=== PATIENT | female | born 1980 | race Two or more races ===

== ENCOUNTER → 2024-11-20 | Outpatient (CLI) | payer MEDICAID, SELFPAY ==
--- NOTE | 2024-11-20 14:15 | XR_ITS ---
Examination: Breast ultrasound, unilateral, left complete Date and time of exam: November 20, 2024 1406 hours INDICATIONS: Left breast sonogram May 25, 2024 10:00 nodule 13 mm Technique: Real-time ott scale ultrasonographic imaging performed left breast including all 4 quadrants as well as nipple retroareolar and axillary region. Findings: 12:00 cyst 4 x 4 millimeter 10:00 lipomatous mass 7 x 6 mm IMPRESSION: BI-RADS Category 2: Benign findings
--- NOTE | 2024-11-20 14:45 | XR_ITS ---
Examination: Diagnostic digital mammography, unilateral, left Computer aided detection 3-D breast Tomosynthesis, unilateral Date and time of exam: November 20, 2024 1413 hours INDICATIONS: Mammogram May 25, 2024 8 mm circumscribed nodule 12:00 position left breast Technique: Nonmagnified MLO, CC views of the left breast have been obtained, reconstructed from 3-D Tomosynthesis images. R2 computer aided detection program utilized for evaluation of suspicious masses and/or abnormal calcifications. 3-D Tomosynthesis images obtained. Findings: Scattered areas of fibroglandular density Stable circumscribed nodule left breast 7 mm Impression: BI-RADS category 2: Benign findings Return to yearly follow-up mammography
== END | disposition home or self-care (01) ==
PROVIDERS: PCP Nurse Practitioner Family; Referring Provider Nurse Practitioner Family; Visit Provider Nurse Practitioner Family
DX: R92.322 Mammographic fibroglandular density, left breast (principal); N63.22 Unspecified lump in the left breast, upper inner quadrant
CPT/HCPCS: 76641; 77061; 77065; G0279

== ENCOUNTER → 2025-07-14 | Outpatient (CLI) | payer MEDICAID, SELFPAY ==
--- NOTE | 2025-07-14 16:06 | XR_ITS ---
Examination: Complete OB ultrasound greater than 14 weeks Date and time of exam: September 13, 2025 at 1617 hours INDICATIONS: [facility] normal second trimester Findings: Viable intrauterine single fetus with single amniotic sac presentation cephalic Cardiac motion 152 BPM Placenta posterior grade 0 Umbilical cord insertion 3 vessel seen Amniotic fluid one pocket 5.1 cm spine maternal right Cervix 5.3 cm. Right ovary 2.7 cm arterial flow. Left ovary 2.8 cm arterial flow 60 mm follicular sclerosis Anterior uterine body area of fibroid degeneration 2.7 x 2.5 cm. Composite estimated gestational age based on BPD, head circumference, abdominal circumference, femur length is 21 weeks 6 days Estimated weight 501.9 g. Survey of intracranial anatomy, spinal anatomy, abdominal anatomy, four-chamber heart performed with no abnormalities identified. Impression: Viable intrauterine gestation cephalic presentation.
== END | disposition home or self-care (01) ==
LOC: CDIM 16:00
PROVIDERS: Referring Provider Obstetrics & Gynecology; Visit Provider Obstetrics & Gynecology
DX: Z34.92 Encounter for supervision of normal pregnancy, unspecified, second trimester (principal); Z3A.21 21 weeks gestation of pregnancy
CPT/HCPCS: 76805

== ENCOUNTER 2025-10-13 11:04 | Outpatient (AMB) | payer MEDICAID, SELFPAY ==
--- NOTE | 2025-10-13 11:17 | OBCLNT_ITS ---
Vital Signs 10/13/25 11:26 Weight 78.982 kg Weight Measurement Method Standing Scale BP 133/89 H Blood Pressure Source Automatic Cuff Blood Pressure Location Left Upper Arm Position Standing Respiration 18 Pulse 80 Pulse Source Monitor Temp 97.2 F Temp Source Oral Pulse Oximetry (%) 97 Oxygen Delivery Method Room Air Allergies/Home Meds Allergies & Medications Allergies No Known Allergies Allergy (Verified 10/13/25 11:27) Medication Reconciliation No Known Home Medications 10/13/25 [History Confirmed 10/13/25] Intake Visit Data Collection New Patient or Established: New Patient (never been to [facility]) Reason for Visit:: OB TRANSFER Seen by Clinical Staff ONLY (RN/MA): No Short Goods Drier Required: Yes Short Goods Drier's name/title: EDUARDO SCHULER MA Do You Feel Safe at Home: Yes Authorities Contacted: N/A PCP or OBGYN visit in last 3 months: Yes Hx Now: Yes Are you currently on any form of Control: No Last menstrual period: 02/18/25 Pain Present Currently: No Pain Scale Used: Cuevas-Arguello/Numerical Pain scale:: 0 Smoking Status Smoking Status: Never smoker Immunizations Flu Vaccine in the Last 12 Months: No Flu Vaccine Exclusion Criteria: No Exclusion Criteria Questionnaires Covid-19 Vaccine Questionnaire Has patient been vacinated for Covid-19 Have you been vacinated for Covid-19: Yes PHQ-9 PHQ-2 Over the last 2 weeks, how often have you been bothered by any of the following problems? 1. Little interest or pleasure in doing things: not at all 2. Feeling down, depressed, or hopeless: not at all Total score: 0 PHQ-9 3. Trouble falling or staying asleep, or sleeping too much: Not at all 4. Feeling tired or having little energy: Not at all 5. Poor appetite or overeating: Not at all 6. Feeling bad about yourself - or that you are a failure or have let yourself or your family down: Not at all 7. Trouble concentrating on things, such as reading the newspaper or watching television: Not at all 8. Moving or speaking so slowly that other people could have noticed? - Or the opposite - being so fidgety or restless that you have been moving around a lot more than usual: not at all 9. Thoughts that you would be better off or of hurting yourself in some way: Not at all Total score: 0 If you checked off any problems, how difficult have these problems made it for you to do your work, take care of things at home, or get along with other people?: not difficult at all Source: Developed by Drs. Cy Leos, Noemi Hodge, Karri Goodwin and colleagues, with an educational audrey from [employer]. Depression screen completed yes Social History Living Situation History Marital Status: Lives With: Family Housing: House Tobacco History Smoking Status: Never smoker Second Hand Smoke Exposure: No Alcohol History Alcohol Intake: Never Domestic Abuse History Do You Feel Safe at Home: Yes OB Initial Visit OB Flowsheet OB Flowsheet Initial Weight: Not Recorded Date -?-?-?-?-?-?-?-?-?-?-?-?- EGA Weight BP Alb Glu CTX Pres Fundal ht FHR Mov Dilation Station Effacement Hx Notes Visit Note 10/13/25 -?-?-?-?-?-?-?-?-?-?-?-?- 33w 6d 78.982 kg 133/89 cephalic 34 148 active Menstrual History Menstrual reliability: definite Flow: normal Menstrual regularity: regular Monthly: Yes Age at menarche: 14 On control pills at conception: No OB History : 3 Para: 1 Hx Total # of Abortions (Spontaneous & Elective): 1 # of Living Children: 1 Delivery History 1st : Child's name: NA date: 03/28/22 sex: male Delivery type: Delivery complications: BABY WOULDNT OPEN Infection History & Risk Evaluation History of STDs: none HIV risk evaluation: low risk Hepatitis B risk evaluation: low risk Patient or partner has history of Genital Herpes: No Varicella/chicken pox status: immunized Genetic Screening & History Genetic Screening/Teratology Counseling - Includes patient, baby's father, or anyone in either family with: 1. Patient's age 35 years or older as of estimated date of delivery: Yes 2. Thalassemia (Serbian, Nauruan, Mediterranean, or Background); MCV less than 80: No 3. Neural Tube Defect (Meningomyelocele, Spina Bifida, or Anencephaly): No 4. Congenital Heart Defect: No 5. Down Syndrome: No 6. Stanton-Sachs ([employer], [facility], [employer] [place]): No 7. Keiry Disease ([employer]): No 8. Familial Dysautonomia ([employer]): No 9. Sickle Cell Disease or Trait (): No 10. Hemophilia or other blood disorders: No 11. Muscular Dystrophy: No 12. Cystic Fibrosis: No 13. Townsend's Chorea: No 14. Mental Retardation/Autism: No 15. Other inherited genetic or chromosomal disorder: No 16. Maternal Metabolic Disorder (EG,TYPE 1 Diabetes, PKU): No 17. Patient or baby's father had a child with defects not listed above: No 18. Recurrent loss or a stillbirth: No 19. Medications (including supplements, vitamins, herbs or otc drugs)/illicit/recreational drugs/alcohol since last menstrual period: No 20. Any other: No Infection History 1. Live with someone with TB or exposed to TB: No 2. Rash or viral illness since last menstrual period: No 3. Hepatitis B,C: No Other (see comments) Source: [employer] Review of Systems Review of Systems Systems Reviewed: All systems reviewed, normal except as documented Exam Narrative Physical exam: Size equal to dates uterus non tender Occasional/ contractions non tender FHR is 148 feta presentation is vertex Office Procedures OBC Clinic LOC & Office Proc's Nursing/Assessment Patient Status: Initial/New Patient OB Clinic Nursing Assessment: Medication Reconciliation, Update PMH in EMR and Vital Signs OB Clinic Coordination of Care: Consent,records obtained, informed consent, Education Simp Pt/Fam, Lab and Imaging orders, Results/Orders obtained and Staff clarify orders Special Needs: Heart tones New Patient Charge New Patient Point Assignment: [id number] New Patient Point Charge: FACEPIECE LINE SUPERVISOR Level 3 ([id number]) Assessment & Plan Diagnosis / Problem List (1) Advanced maternal age (AMA) in : Status: Acute (2) Previous section: Status: Acute (3) : Status: Acute Qualifiers: Weeks of gestation: 33 weeks Qualified Code(s): Z3A.33 - 33 weeks gesta tion of (4) Gestational diabetes mellitus: Status: Acute Qualifiers: Gestational diabetes mellitus control: diet-controlled Trimester: third trimester Qualified Code(s): O24.410 - Gestational diabetes mellitus in , diet controlled Plan 45 years old / GDM on metformin by Dr Franklin and also did not bring her sugar log she has a previous c section/ declined Flu vaccine / A positive /HIV NR/HbsAg is negative RPR NR /rubella immune / One hour GTT is 215 c/w GDM refill Metformin and also vitamins / Needs to start NST biweekly / Also to follow up in 2 weeks / need to schedule repeat C section between 38 to 39 weeks Additional Assessment see above Additional Plan Follow Up: 2 Weeks
[2025-10-13 11:26] VITALS: BP 133/89; PULSE 80; RESP 18; TEMP 36.2; O2SAT 97
== END 2025-10-13 12:11 | disposition home or self-care (01) ==
LOC: HODSOBC 11:04
PROVIDERS: Supervising Provider Obstetrics & Gynecology; Visit Provider Obstetrics & Gynecology
DX: O09.523 Supervision of elderly multigravida, third trimester (principal); O09.893 Supervision of other high risk pregnancies, third trimester; O24.415 Gestational diabetes mellitus in pregnancy, controlled by oral hypoglycemic drugs; O09.293 Supervision of pregnancy with other poor reproductive or obstetric history, third trimester; O34.219 Maternal care for unspecified type scar from previous cesarean delivery; Z3A.33 33 weeks gestation of pregnancy
CPT/HCPCS: 99203; G0463

== ENCOUNTER 2025-10-26 14:14 | Outpatient (AMB) | payer MEDICAID, SELFPAY ==
[2025-10-26 14:59] VITALS: BP 137/84; PULSE 88; RESP 18; TEMP 36.2; O2SAT 98
--- NOTE | 2025-10-26 14:59 | OBCLNT_ITS ---
Vital Signs 10/26/25 14:59 Weight 79.549 kg Weight Measurement Method Standing Scale BP 137/84 H Blood Pressure Source Automatic Cuff Blood Pressure Location Left Upper Arm Position Sitting Respiration 18 Pulse 88 Pulse Source Monitor Temp 97.2 F Temp Source Oral Pulse Oximetry (%) 98 Oxygen Delivery Method Room Air Allergies/Home Meds Allergies & Medications Allergies No Known Allergies Allergy (Verified 10/26/25 16:37) Medication Reconciliation No Known Home Medications 10/13/25 [History Confirmed 10/26/25] Immunizations Immunizations Flu Vaccine in the Last 12 Months: No Flu Vaccine Exclusion Criteria: No Exclusion Criteria Care OB Visit Log OB Flowsheet Initial Weight: Not Recorded Date -?-?-?-?-?-?-?-?-?-?-?-?- EGA Weight BP Alb Glu CTX Pres Fundal ht FHR Mov Dilation Station Effacement Hx Notes Visit Note 10/13/25 -?-?-?-?-?-?-?-?-?-?-?-?- 33w 6d 78.982 kg 133/89 cephalic 34 148 active 10/26/25 -?-?-?-?-?-?-?-?-?-?-?-?- 35w 5d 79.549 kg 137/84 cephalic 36 140 active YOLANDA Calculator Estimated Delivery Date Method Current WG Current Estimate 11/25/25 LMP (Certain) 36w 4d Expected Delivery Route/Plan repeat C section Notes Visit Date: 10/26/25 Last Updated by: Geovanna Scott MD 45 years old / GDM on metformin by Dr Franklin /35.5 weeks today . BP is staying below 140/90 / AMA at 45 years of age / GBS today she has a previous c section/ declined Flu vaccine / A positive /HIV NR/HbsAg is negative RPR NR /rubella immune / One hour GTT is 215 c/w GDM refill Metformin and also vitamins / NST biweekly was ordered but patient states she was not called / Also to follow up in 1 weeks / need to schedule repeat C section between 38 to 39 weeks/ Plan on 11/11/2025 at 12.30 pm /R/B and options all explained Visit Date: 10/13/25 Last Updated by: Geovanna Scott MD 45 years old / GDM on metformin by Dr Franklin and also did not bring her sugar log she has a previous c section/ declined Flu vaccine / A positive /HIV NR/HbsAg is negative RPR NR /rubella immune / One hour GTT is 215 c/w GDM refill Metformin and also vitamins / Needs to start NST biweekly / Also to follow up in 2 weeks / need to schedule repeat C section between 38 to 39 weeks Office Procedures OBC Clinic LOC & Office Proc's Nursing/Assessment Patient Status: Established Patient OB Clinic Nursing Assessment: Medication Reconciliation, Update PMH in EMR and Vital Signs OB Clinic Coordination of Care: Consent,records obtained, informed consent, Education Simp Pt/Fam, Lab and Imaging orders, Results/Orders obtained and Staff clarify orders Special Needs: Heart tones Established Patient Charge Established Patient Point Assignment: 110 Established Patient Point Charge: EP Level 3 (80-115) Assessment & Plan Diagnosis / Problem List (1) Advanced maternal age (AMA) in : Status: Acute (2) Previous section: Status: Acute (3) Gestational diabetes mellitus: Status: Acute Qualifiers: Gestational diabetes mellitus control: diet-controlled Trimester: third trimester Qualified Code(s): O24.410 - Gestational diabetes mellitus in , diet controlled Plan 45 years old / GDM on metformin by Dr Franklin /35.5 weeks today . BP is staying below 140/90 / AMA at 45 years of age / GBS today she has a previous c section/ declined Flu vaccine / A positive /HIV NR/HbsAg is negative RPR NR /rubella immune / One hour GTT is 215 c/w GDM refill Metformin and also vitamins / NST biweekly was ordered but patient states she was not called / Also to follow up in 1 weeks / need to schedule repeat C section between 38 to 39 weeks/ Plan on 11/11/2025 at 12.30 pm /R/B and options all explained and patient has AMA and has GDM on medication
== END 2025-10-26 15:35 | disposition home or self-care (01) ==
LOC: HODSOBC 14:14
PROVIDERS: Supervising Provider Obstetrics & Gynecology; Visit Provider Obstetrics & Gynecology
DX: O09.523 Supervision of elderly multigravida, third trimester (principal); O09.293 Supervision of pregnancy with other poor reproductive or obstetric history, third trimester; O34.219 Maternal care for unspecified type scar from previous cesarean delivery; O09.893 Supervision of other high risk pregnancies, third trimester; O24.415 Gestational diabetes mellitus in pregnancy, controlled by oral hypoglycemic drugs; Z3A.35 35 weeks gestation of pregnancy; Z36.85 Encounter for antenatal screening for Streptococcus B; Z28.21 Immunization not carried out because of patient refusal
CPT/HCPCS: 99213; G0463

== ENCOUNTER 2025-10-26 16:08 | Observation (INO) | payer MEDICAID, SELFPAY ==
[2025-10-26] VITALS (34 sets, daily range): BP systolic 123–137; BP diastolic 67–80; PULSE 75–90; RESP 18–100; TEMP 36.6; O2SAT 98–100; BMI 34.2
[2025-10-26 16:37] LABS: Collection Type, Urine Clean Catch
[2025-10-26 16:41] LABS: Basophils # (Auto) 0.0 Thou/mm3 (0.0-0.2); Basophils % (Auto) 0 % (0-2.5); Eosinophils # (Auto) 0.1 Thou/mm3 (0.0-0.5); Eosinophils % (Auto) 0 % (0-10); Hematocrit 42.0 % (36.0-46.0); Hemoglobin 14.4 g/dL (12.0-16.0); Immature Granulocytes Auto 0.06 Thou/mm3 (0.00-0.00); Lymphocytes # (Auto) 1.8 Thou/mm3 (1.0-4.8); Lymphocytes % (Auto) 16 % (10-50); Mean Corpuscular HGB Conc 34.3 g/dl (31.0-37.0); Mean Corpuscular Hemoglobin 30.6 pg (25.0-35.0); Mean Corpuscular Volume 89 fL (80-100); Monocytes # (Auto) 0.6 Thou/mm3 (0.0-0.8); Monocytes % (Auto) 5 % (0-12); Neutrophils # (Auto) 9.0 Thou/mm3 (1.8-7.7); Neutrophils % (Auto) 78 % (37-80); Nucleated Red Blood Cell # 0.00 Thou/mm3 (0.00-0.00); Nucleated Red Blood Cell % 0 /100 WBC (0); Platelet Count 199 Thou/mm3 (140-440); RDW Standard Deviation 42.2 fL (36.4-46.3); Red Blood Count 4.71 Miln/mm3 (4.00-5.20); White Blood Count 11.6 Thou/mm3 (3.6-11.0)
[2025-10-26 16:44] LABS: Bacteria,Urine 1+; Bilirubin,Urine Negative (Negative); Blood,Urine 1+ (Negative); Color,Urine Lt-Yellow (Lt Yel-Yel); Glucose, Urine Negative (Negative); Ketones,Urine Negative (Negative); Leukocyte Esterase,Urine Positive (Negative); Nitrite,Urine Negative (Negative); PH,Urine 5.5 (5.0-7.0); Protein,Urine Trace (Neg - Trace); RBC,Urine 3 /hpf (0-3); Specific Gravity,Urine 1.011 (1.001-1.035); Squamous Epithelial Cell,Urine 21 /hpf (0-5); Urobilinogen,Urine Negative mg/dL (0.0-1.0); WBC,Urine 3 /hpf (0-5)
[2025-10-26 16:49] LABS: Creatinine,Random Urine 58 mg/dL (30-125); Protein Total, Random Urine 22 mg/dL (1-14)
[2025-10-26 17:02] LABS: Alanine Aminotransferase 12 U/L (10-49); Albumin, Serum 4.0 gm/dL (3.5-5.0); Albumin/Globulin Ratio 1.4 (1.2-2.2); Alkaline Phosphatase 122 U/L (46-116); Anion Gap 10 (7-16); Aspartate Amino Transferase 21 U/L (0-34); BUN/Creatinine Ratio 11 Ratio (12-20); Bilirubin,Total 0.2 mg/dL (0.3-1.2); Blood Urea Nitrogen 8 mg/dL (9-23); Calcium 8.7 mg/dL (8.3-10.6); Calcium (Corrected) 8.7 mg/dL (8.5-10.1); Carbon Dioxide 21.8 mMol/L (20.0-31.0); Chloride 108 mMol/L (98-107); Creatinine (Component) 0.7 mg/dL (0.6-1.3); Estimated Creatinine Clearance 96.6 mL/min (>60); Globulin 2.8 gm/dL (2.3-3.5); Glucose 105 mg/dL (74-106); LDH (Lactate Dehydrogenase) 167 U/L (120-246); Osmolality,Calculated 277 (275-295); Potassium 3.7 mMol/L (3.4-5.1); Sodium 140 mMol/L (136-145); Total Protein 6.8 gm/dL (5.7-8.2); Uric Acid 3.8 mg/dL (3.1-7.8); eGFR > 60 See Note
[2025-10-26 17:07] LABS: Clarity,Urine Hazy (Clear/Hazy)
[2025-10-26 18:25] LABS: INR 0.9 (0.9-1.3); Partial Thromboplastin Time 25.9 Seconds (22.0-36.0); Prothrombin Time 9.7 Seconds (9.0-12.2)
[2025-10-26 18:28] LABS: Creatinine,Random Urine 39 mg/dL (30-125); Protein Total, Random Urine 8 mg/dL (1-14)
--- NOTE | 2025-10-26 23:30 | PD.LDPN ---
Documentation for date of: 10/26/25 OB Labor Progress Note Pelvic Exam Amniotic membrane status: Intact Contractions Monitor mode: External Contraction frequency: 3-10 Contraction intensity: Mild Status status: Category l Assessment and Plan Comments: Triage Note Lore is a 45yo with SIUP at 35&5wk presenting to L&D from clinic for PIH workup for bp 130's/80's. She notes no painful/regular ctx, no vaginal bleeding, no lof. Normal movement. She denies headache, vision changes and RUQ pain. PMhx/PNC significant for: -A2GDM, metformin -Prior section -Current BMI 34.2 ROS negative other than what was described above. Vitals wnl, afebrile General: well developed, well nourished, no acute distress, conversant Cardiac: normal heart rate Lungs: breathing without distress Abdomen: soft, gravid, non-tender, no rebound or guarding Extremities: no edema of BLE NST: Reactive, +accels, no decels, mod kartik [place]: no regular ctx pattern Labs: Hgb 14.4 Plt 199 serum creat 0.7 AST/ALT wnl urine prot:creat 0.2 Assessment: Lore is a 45yo with SIUP at 35&5wk with no evidence of GHTN or pre-eclampsia at this time. Vitals wnl, benign exam. Reassuring status. Plan: -Continue routine follow up with Dr. Scott in 1 week -Return precautions discussed Zakyia Jones MD
== END 2025-10-26 19:06 | disposition home or self-care (01) ==
PROVIDERS: Obstetrics & Gynecology; Admitting Provider Obstetrics & Gynecology; Visit Provider Obstetrics & Gynecology
DX: Z34.83 Encounter for supervision of other normal pregnancy, third trimester (principal); Z36.89 Encounter for other specified antenatal screening; Z3A.37 37 weeks gestation of pregnancy
CPT/HCPCS: 36415; 59025; 59899; 80053; 81001; 82570; 83615; 84156; 84550; 85025; 85610; 85730

== ENCOUNTER 2025-11-02 08:47 | Outpatient (AMB) | payer MEDICAID, SELFPAY ==
[2025-11-02 08:57] VITALS: BP 133/81; PULSE 80; RESP 18; TEMP 36.8; O2SAT 98
--- NOTE | 2025-11-02 08:57 | AMB.OBPNC ---
Vital Signs 11/02/25 08:57 Weight 79.379 kg Weight Measurement Method Standing Scale BP 133/81 H Blood Pressure Source Automatic Cuff Blood Pressure Location Left Upper Arm Position Sitting Respiration 18 Pulse 80 Pulse Source Monitor Temp 98.2 F Temp Source Oral Pulse Oximetry (%) 98 Oxygen Delivery Method Room Air Allergies/Home Meds Allergies & Medications Allergies No Known Allergies Allergy (Verified 11/10/25 11:57) Medication Reconciliation metformin 500 mg tablet 500 mg PO BID #60 tabs 11/02/25 [Rx Confirmed 11/10/25] aspirin 81 mg tablet,delayed release mg 11/10/25 [History] vit no.95-ferrous fumarate 28 mg-folic acid 800 mcg tablet () tab PO 11/10/25 [History] Immunizations Immunizations Flu Vaccine in the Last 12 Months: No Flu Vaccine Exclusion Criteria: Refused by Patient and No Exclusion Criteria Care OB Visit Log OB Flowsheet Initial Weight: Not Recorded Date <del>?</del> EGA Weight BP Alb Glu CTX Pres Fundal ht FHR Mov Dilation Station Effacement Hx Notes Visit Note 10/13/25 <del>?</del> 33w 6d 78.982 kg 133/89 cephalic 34 148 active 10/26/25 <del>?</del> 35w 5d 79.549 kg 137/84 cephalic 36 140 active 11/02/25 <del>?</del> 36w 5d 79.379 kg 133/81 absent cephalic 37 144 active 11/10/25 <del>?</del> 37w 6d 80.853 kg 143/83 absent cephalic 38 144 active YOLANDA Calculator Estimated Delivery Date Method Current WG Current Estimate 11/25/25 LMP (Certain) 38w 0d Expected Delivery Route/Plan repeat C section Notes Visit Date: 11/10/25 Last Updated by: Geovanna Scott MD PLAN REPEAT LTCS IN AM AT 0730 am on 11/11/2025 for GDM on medication / repeat BP today is 153/93 Preop instructions given / follow up after surgery in 1 to 2 weeks 45 years old with GDM on metformin at 37.6 weeks today Visit Date: 11/02/25 Last Updated by: Geovanna Scott MD scheduled for repeat LTCS on 11/11/2025 at 12.30 for AMA and GDM on Metformin Borderline BP in office / sugar log reviewed and well controlled on Metformin/ Needs refills on metformin NST Sat/ / Counselled on R/b and options of repeat LTCS in [place] via compensation and benefits administrator. Visit Date: 10/26/25 Last Updated by: Geovanna Scott MD 45 years old / GDM on metformin by Dr Franklin /35.5 weeks today . BP is staying below 140/90 / AMA at 45 years of age / GBS today she has a previous c section/ declined Flu vaccine / A positive /HIV NR/HbsAg is negative RPR NR /rubella immune / One hour GTT is 215 c/w GDM refill Metformin and also vitamins / NST biweekly was ordered but patient states she was not called / Also to follow up in 1 weeks / need to schedule repeat C section between 38 to 39 weeks/ Plan on 11/11/2025 at 12.30 pm /R/B and options all explained Visit Date: 10/13/25 Last Updated by: Geovanna Scott MD 45 years old / GDM on metformin by Dr Franklin and also did not bring her sugar log she has a previous c section/ declined Flu vaccine / A positive /HIV NR/HbsAg is negative RPR NR /rubella immune / One hour GTT is 215 c/w GDM refill Metformin and also vitamins / Needs to start NST biweekly / Also to follow up in 2 weeks / need to schedule repeat C section between 38 to 39 weeks Office Procedures OBC Clinic LOC & Office Proc's Nursing/Assessment Patient Status: Established Patient OB Clinic Nursing Assessment: Medication Reconciliation, Update PMH in EMR and Vital Signs OB Clinic Coordination of Care: Consent,records obtained, informed consent, Education Simp Pt/Fam, Lab and Imaging orders, Results/Orders obtained and Staff clarify orders Special Needs: Heart tones Established Patient Charge Established Patient Point Assignment: 110 Established Patient Point Charge: EP Level 3 (80-115) Assessment & Plan Additional Plan Patient was given the reason for proceeding with surgery. She was given the risk benefits and options. She chose to proceed with the surgery. Risks of surgery to include risk of infection bleeding, possible injury to the surrounding organs like the urinary bladder, intestines, ureter, uterus, tubes, ovaries, nerves, blood vessels, possible risk of wound dehiscence later on or hernia development later on in future. However the surgery is done when the benefits outweigh the risks Possible risks of blood transfusion and options were also discussed. All questions answered Patient willing to proceed with surgery.Scheduled for repeat LTCS on 11/11/2025 at 38 weeks for AMa and GDM on Metformin Follow Up: 1 Week
== END 2025-11-02 09:26 | disposition home or self-care (01) ==
PROVIDERS: Supervising Provider Obstetrics & Gynecology; Visit Provider Obstetrics & Gynecology
DX: O09.293 Supervision of pregnancy with other poor reproductive or obstetric history, third trimester (principal); O34.211 Maternal care for low transverse scar from previous cesarean delivery; O09.523 Supervision of elderly multigravida, third trimester; O09.893 Supervision of other high risk pregnancies, third trimester; O24.415 Gestational diabetes mellitus in pregnancy, controlled by oral hypoglycemic drugs; Z3A.36 36 weeks gestation of pregnancy; Z28.21 Immunization not carried out because of patient refusal; Z60.3 Acculturation difficulty
CPT/HCPCS: 99213; G0463

== ENCOUNTER 2025-11-08 10:03 | Outpatient (RCR) | payer MEDICAID, SELFPAY ==
--- NOTE | 2025-11-01 10:37 | XR_ITS ---
Examination: Biophysical profile, ultrasound Date and time of exam: October,, 10:43 a.m. INDICATIONS: Diagnosis gestational diabetes, diagnosis advanced maternal age Technique: Multiple transabdominal sonographic images of the pelvis abdomen obtained. Attention is directed to the breathing movement, gross body movement, amniotic fluid volume and tone. Findings: Amniotic fluid index 15.1 cm Total biophysical profile is 8 of 8. breathing movement is 2. Gross body movement is 2. tone is 2. Qualitative amniotic fluid volume is 2 Impression: Biophysical profile is 8 of 8.
[2025-11-01 11:08] VITALS: BP 124/74; PULSE 81; RESP 16; TEMP 37
--- NOTE | 2025-11-04 10:11 | XR_ITS ---
Examination: Biophysical profile, ultrasound Date and time of exam: November 04, 2025, 1019 hours INDICATIONS: Diagnosis advanced maternal age, diagnosis gestational diabetes Technique: Multiple transabdominal sonographic images of the pelvis abdomen obtained. Attention is directed to the breathing movement, gross body movement, amniotic fluid volume and tone. Findings: Amniotic fluid index 16.7 cm Total biophysical profile is 8 of 8. breathing movement is 2. Gross body movement is 2. tone is 2. Qualitative amniotic fluid volume is 2 Impression: Biophysical profile is 8 of 8.
[2025-11-04 10:38] VITALS: BP 114/68; PULSE 82; RESP 16; TEMP 36.5
[2025-11-04] MEDS: RINGERS LACTATED 1000 ML 1,000 ML 999 ML IV (11:48)
[2025-11-04 13:16] LABS: Basophils # (Auto) 0.0 Thou/mm3 (0.0-0.2); Basophils % (Auto) 0 % (0-2.5); Eosinophils # (Auto) 0.0 Thou/mm3 (0.0-0.5); Eosinophils % (Auto) 0 % (0-10); Hematocrit 44.2 % (36.0-46.0); Hemoglobin 14.9 g/dL (12.0-16.0); Immature Granulocytes Auto 0.07 Thou/mm3 (0.00-0.00); Lymphocytes # (Auto) 1.4 Thou/mm3 (1.0-4.8); Lymphocytes % (Auto) 15 % (10-50); Mean Corpuscular HGB Conc 33.7 g/dl (31.0-37.0); Mean Corpuscular Hemoglobin 30.0 pg (25.0-35.0); Mean Corpuscular Volume 89 fL (80-100); Monocytes # (Auto) 0.6 Thou/mm3 (0.0-0.8); Monocytes % (Auto) 6 % (0-12); Neutrophils # (Auto) 7.1 Thou/mm3 (1.8-7.7); Neutrophils % (Auto) 77 % (37-80); Nucleated Red Blood Cell # 0.00 Thou/mm3 (0.00-0.00); Nucleated Red Blood Cell % 0 /100 WBC (0); Platelet Count 186 Thou/mm3 (140-440); RDW Standard Deviation 42.4 fL (36.4-46.3); Red Blood Count 4.96 Miln/mm3 (4.00-5.20); White Blood Count 9.1 Thou/mm3 (3.6-11.0)
[2025-11-04 13:31] LABS: Glucose Estimated Average 134 mg/dL (80-131); Hemoglobin A1C 6.3 % Hgb (4.8-6.0)
[2025-11-04 14:50] LABS: Syphilis Nonreactive (Nonreactive)
--- NOTE | 2025-11-08 10:20 | XR_ITS ---
Examination: Biophysical profile, ultrasound Date and time of exam: November 08, 2025, 1029 hours INDICATIONS: Diagnosis advanced maternal age, diagnosis gestational diabetes Technique: Multiple transabdominal sonographic images of the pelvis abdomen obtained. Attention is directed to the breathing movement, gross body movement, amniotic fluid volume and tone. Findings: Amniotic fluid index 12.0 cm Total biophysical profile is 8 of 8. breathing movement is 2. Gross body movement is 2. tone is 2. Qualitative amniotic fluid volume is 2 Impression: Biophysical profile is 8 of 8.
[2025-11-08 10:46] VITALS: BP 128/61; PULSE 73; RESP 16; TEMP 36.8
== END 2025-11-08 23:59 | disposition home or self-care (01) ==
LOC: S4S1 10:03
PROVIDERS: Obstetrics & Gynecology; PCP Family Medicine; Referring Provider Obstetrics & Gynecology; Visit Provider Obstetrics & Gynecology
DX: O24.415 Gestational diabetes mellitus in pregnancy, controlled by oral hypoglycemic drugs (principal); O34.218 Maternal care for other type scar from previous cesarean delivery; Z3A.37 37 weeks gestation of pregnancy
CPT/HCPCS: 36415; 59025; 76819; 83036; 85025; 86780; 86850; 86900; 86901; J7120

== ENCOUNTER 2025-11-10 09:16 | Outpatient (AMB) | payer MEDICAID, SELFPAY ==
[2025-11-10 09:35] VITALS: BP 143/83; PULSE 82; RESP 18; TEMP 36.1; O2SAT 98; BMI 34.9
--- NOTE | 2025-11-10 09:35 | OBCLNT_ITS ---
Vital Signs 11/10/25 09:35 Height 1.52 m Height Method Stated Weight 80.853 kg Weight Measurement Method Standing Scale BMI 34.9 BP 143/83 H Blood Pressure Source Automatic Cuff Blood Pressure Location Left Upper Arm Position Sitting Respiration 18 Pulse 82 Pulse Source Monitor Temp 96.9 F Temp Source Temporal Artery Scan Pulse Oximetry (%) 98 Oxygen Delivery Method Room Air Allergies/Home Meds Allergies & Medications Allergies No Known Allergies Allergy (Verified 11/10/25 11:57) Medication Reconciliation metformin 500 mg tablet 500 mg PO BID #60 tabs 11/02/25 [Rx Confirmed 11/10/25] aspirin 81 mg tablet,delayed release mg 11/10/25 [History] vit no.95-ferrous fumarate 28 mg-folic acid 800 mcg tablet () tab PO 11/10/25 [History] Immunizations Immunizations Flu Vaccine in the Last 12 Months: No Flu Vaccine Exclusion Criteria: No Exclusion Criteria Care OB Visit Log OB Flowsheet Initial Weight: Not Recorded Date -?-?-?-?-?-?-?-?-?-?-?-?- EGA Weight BP Alb Glu CTX Pres Fundal ht FHR Mov Dilation Station Effacement Hx Notes Visit Note 10/13/25 -?-?-?-?-?-?-?-?-?-?-?-?- 33w 6d 78.982 kg 133/89 cephalic 34 148 active 10/26/25 -?-?-?-?-?-?-?-?-?-?-?-?- 35w 5d 79.549 kg 137/84 cephalic 36 140 active 11/02/25 -?-?-?-?-?-?-?-?-?-?-?-?- 36w 5d 79.379 kg 133/81 absent cephalic 37 144 active 11/10/25 -?-?-?-?-?-?-?-?-?--?-?-?- 37w 6d 80.853 kg 143/83 absent cephalic 38 144 active YOLANDA Calculator Estimated Delivery Date Method Current WG Current Estimate 11/25/25 LMP (Certain) 37w 6d Expected Delivery Route/Plan repeat C section Notes Visit Date: 11/10/25 Last Updated by: Geovanna Scott MD PLAN REPEAT LTCS IN AM AT 0730 am on 11/11/2025 for GDM on medication / repeat BP today is 153/93 Preop instructions given / follow up after surgery in 1 to 2 weeks 45 years old with GDM on metformin at 37.6 weeks today Visit Date: 11/02/25 Last Updated by: Geovanna Scott MD scheduled for repeat LTCS on 11/11/2025 at 12.30 for AMA and GDM on Metformin Borderline BP in office / sugar log reviewed and well controlled on Metformin/ Needs refills on metformin NST Sat/ / Counselled on R/b and options of repeat LTCS in [place] via defensive fire control systems operator. Visit Date: 10/26/25 Last Updated by: Geovanna Scott MD 45 years old / GDM on metformin by Dr Franklin /35.5 weeks today . BP is staying below 140/90 / AMA at 45 years of age / GBS today she has a previous c section/ declined Flu vaccine / A positive /HIV NR/HbsAg is negative RPR NR /rubella immune / One hour GTT is 215 c/w GDM refill Metformin and also vitamins / NST biweekly was ordered but patient states she was not called / Also to follow up in 1 weeks / need to schedule repeat C section between 38 to 39 weeks/ Plan on 11/11/2025 at 12.30 pm /R/B and options all explained Visit Date: 10/13/25 Last Updated by: Geovanna Scott MD 45 years old / GDM on metformin by Dr Franklin and also did not bring her sugar log she has a previous c section/ declined Flu vaccine / A positive /HIV NR/HbsAg is negative RPR NR /rubella immune / One hour GTT is 215 c/w GDM refill Metformin and also vitamins / Needs to start NST biweekly / Also to follow up in 2 weeks / need to schedule repeat C section between 38 to 39 weeks Office Procedures [facility] LOC & Office Proc's Nursing/Assessment Patient Status: Established Patient OB Clinic Nursing Assessment: Medication Reconciliation, Update PMH in EMR and Vital Signs OB Clinic Coordination of Care: Complex Care and Chronic Disease 1-5, Education Complex Pt/Fam, Consent,records obtained, informed consent, Lab and Imaging orders, Results/Orders obtained and Staff clarify orders Special Needs: Heart tones Established Patient Charge Established Patient Point Assignment: 140 Established Patient Point Charge: EP Level 4 (120-155) Assessment & Plan Diagnosis / Problem List (1) Gestational diabetes mellitus: Status: Acute Qualifiers: Gestational diabetes mellitus control: diet-controlled Trimester: third trimester Qualified Code(s): O24.410 - Gestational diabetes mellitus in , diet controlled (2) Previous section: Status: Acute (3) Advanced maternal age (AMA) in : Status: Acute Assessment and Plan: 45 years old at 37.6 weeks with previous c section and with elevated BP in office today / send to Ob L&D , if discharged. plan repeat LTCS in am tomorrow / Patient given R/B and options aof surgery (4) : Status: Acute Qualifiers: Weeks of gestation: 33 weeks Qualified Code(s): Z3A.33 - 33 weeks gestation of
== END 2025-11-10 10:44 | disposition home or self-care (01) ==
LOC: HODSOBC 09:16
PROVIDERS: Supervising Provider Obstetrics & Gynecology; Visit Provider Obstetrics & Gynecology
DX: O09.893 Supervision of other high risk pregnancies, third trimester (principal); O24.415 Gestational diabetes mellitus in pregnancy, controlled by oral hypoglycemic drugs; O09.523 Supervision of elderly multigravida, third trimester; O09.293 Supervision of pregnancy with other poor reproductive or obstetric history, third trimester; O34.211 Maternal care for low transverse scar from previous cesarean delivery; O99.891 Other specified diseases and conditions complicating pregnancy; R03.0 Elevated blood-pressure reading, without diagnosis of hypertension; Z3A.37 37 weeks gestation of pregnancy
CPT/HCPCS: 99214; G0463

== ENCOUNTER 2025-11-10 11:08 | Observation (INO) | payer MEDICAID, SELFPAY ==
[2025-11-10] VITALS (28 sets, daily range): BP systolic 127–139; BP diastolic 73–86; PULSE 76–89; RESP 17–100; TEMP 37.1; O2SAT 97–100; BMI 34.0
[2025-11-10 11:58] LABS: Collection Type, Urine Clean Catch
[2025-11-10 12:02] LABS: Basophils # (Auto) 0.0 Thou/mm3 (0.0-0.2); Basophils % (Auto) 0 % (0-2.5); Eosinophils # (Auto) 0.0 Thou/mm3 (0.0-0.5); Eosinophils % (Auto) 0 % (0-10); Hematocrit 42.3 % (36.0-46.0); Hemoglobin 14.5 g/dL (12.0-16.0); Immature Granulocytes Auto 0.07 Thou/mm3 (0.00-0.00); Lymphocytes # (Auto) 1.7 Thou/mm3 (1.0-4.8); Lymphocytes % (Auto) 17 % (10-50); Mean Corpuscular HGB Conc 34.3 g/dl (31.0-37.0); Mean Corpuscular Hemoglobin 30.0 pg (25.0-35.0); Mean Corpuscular Volume 87 fL (80-100); Monocytes # (Auto) 0.6 Thou/mm3 (0.0-0.8); Monocytes % (Auto) 6 % (0-12); Neutrophils # (Auto) 7.6 Thou/mm3 (1.8-7.7); Neutrophils % (Auto) 76 % (37-80); Nucleated Red Blood Cell # 0.00 Thou/mm3 (0.00-0.00); Nucleated Red Blood Cell % 0 /100 WBC (0); Platelet Count 183 Thou/mm3 (140-440); RDW Standard Deviation 41.3 fL (36.4-46.3); Red Blood Count 4.84 Miln/mm3 (4.00-5.20); White Blood Count 10.0 Thou/mm3 (3.6-11.0)
[2025-11-10 12:26] LABS: Alanine Aminotransferase 15 U/L (10-49); Albumin, Serum 3.9 gm/dL (3.5-5.0); Albumin/Globulin Ratio 1.3 (1.2-2.2); Alkaline Phosphatase 142 U/L (46-116); Anion Gap 12 (7-16); Aspartate Amino Transferase 24 U/L (0-34); BUN/Creatinine Ratio 15 Ratio (12-20); Bilirubin,Total 0.3 mg/dL (0.3-1.2); Blood Urea Nitrogen 9 mg/dL (9-23); Calcium 8.9 mg/dL (8.3-10.6); Calcium (Corrected) 9.0 mg/dL (8.5-10.1); Carbon Dioxide 19.3 mMol/L (20.0-31.0); Chloride 109 mMol/L (98-107); Creatinine (Component) 0.6 mg/dL (0.6-1.3); Estimated Creatinine Clearance 113.7 mL/min (>60); Globulin 2.9 gm/dL (2.3-3.5); Glucose 85 mg/dL (74-106); LDH (Lactate Dehydrogenase) 184 U/L (120-246); Osmolality,Calculated 277 (275-295); Potassium 3.8 mMol/L (3.4-5.1); Sodium 140 mMol/L (136-145); Total Protein 6.8 gm/dL (5.7-8.2); Uric Acid 4.8 mg/dL (3.1-7.8); eGFR > 60 See Note
[2025-11-10 12:35] LABS: Bacteria,Urine 4+; Bilirubin,Urine Negative (Negative); Blood,Urine 1+ (Negative); Color,Urine Yellow (Lt Yel-Yel); Glucose, Urine Negative (Negative); Ketones,Urine Negative (Negative); Leukocyte Esterase,Urine Positive (Negative); Nitrite,Urine Negative (Negative); PH,Urine 6.0 (5.0-7.0); Protein,Urine 1+ (Neg - Trace); RBC,Urine 4 /hpf (0-3); Specific Gravity,Urine 1.015 (1.001-1.035); Squamous Epithelial Cell,Urine 121 /hpf (0-5); Urobilinogen,Urine Negative mg/dL (0.0-1.0); WBC,Urine 22 /hpf (0-5)
[2025-11-10 12:44] LABS: Syphilis Nonreactive (Nonreactive)
[2025-11-10 12:53] LABS: Clarity,Urine Cloudy (Clear/Hazy)
[2025-11-10 13:05] LABS: Creatinine,Random Urine 73 mg/dL (30-125); Protein Total, Random Urine 91 mg/dL (1-14)
[2025-11-10 13:29] LABS: INR 0.9 (0.9-1.3); Partial Thromboplastin Time 26.1 Seconds (22.0-36.0); Prothrombin Time 9.5 Seconds (9.0-12.2)
[2025-11-10 13:30] LABS: Fibrinogen 560 mg/dL (175-375)
== END 2025-11-10 13:25 | disposition home or self-care (01) ==
PROVIDERS: Admitting Provider Obstetrics & Gynecology; Visit Provider Obstetrics & Gynecology
DX: O16.3 Unspecified maternal hypertension, third trimester (principal); Z3A.37 37 weeks gestation of pregnancy
CPT/HCPCS: 36415; 59025; 59899; 80053; 81001; 82570; 83615; 84156; 84550; 85025; 85384; 85610; 85730; 86780; 86850; 86900; 86901

== ENCOUNTER 2025-11-11 05:41 | Inpatient (IN) | payer MEDICAID, SELFPAY ==
[2025-11-11] VITALS (15 sets, daily range): BP systolic 131–164; BP diastolic 75–86; PULSE 68–82; RESP 12–18; TEMP 36.4–37; O2SAT 97–100; BMI 33.6; BMI 32.8
[2025-11-11] MEDS: METOCLOPRAMIDE INJ 5 MG/ML VIAL 2 ML 10 MG IVP (07:22)
[2025-11-11] MEDS: ceFAZolin/D5W 2 GM IV 2 GM/100 ML BAG IV (07:22)
[2025-11-11] MEDS: FAMOTIDINE INJ 10 MG/ML VIAL 2 ML 20 MG IV (07:22)
--- NOTE | 2025-11-11 07:28 | PD.LDHP ---
Documentation for date of: 11/11/25 OB Labor/Induct. HPI History of Present Illness Chief complaint: previous c section, AMA, GDM on metformin : 3 Term pregnancies: 1 pregnancies: 0 Living children: 1 History of Abortions: Spontaneous and Elective: 1 History of sections: Yes (X1) History of : No Date of last menstrual period: 02/18/25 YOLANDA: 11/25/25 Gestational Age (weeks): 38 Gestational age based on last menstrual period: 38 History of present illness: 45 years old at 38 weeks and AMA, GDM on Metformin and here for repeat LTCS R/B and options explained History of Present Dating criteria: LMP confirmed by 2nd trimester US Adequate Care: No Ultrasounds: normal mid trimester US Obstetrical complications: gestational diabetes (on metformin) and other (AMA/ previous C section) Labs Maternal Blood Type: A Pos Review of Systems Review of Systems Systems Reviewed: All systems reviewed, normal except as documented Past Medical History Surgical History SURGICAL: Positive Section (X1) Meds Home Medications and Allergies Home Medications ?Medication ?Instructions ?Recorded ?Confirmed ?Type aspirin 81 mg tablet,delayed 81 mg PO QDAY 11/10/25 11/11/25 History release vit no.95-ferrous 1 tab PO QDAY 11/10/25 11/11/25 History fumarate 28 mg-folic acid 800 mcg tablet () Allergies Allergy/AdvReac Type Severity Reaction Status Date / Time No Known Allergies Allergy Verified 11/11/25 05:51 OB Exam Physical Exam Vital signs: Temp Pulse Resp BP Pulse Ox 98.3 F 79 18 149/82 H 99 11/11/25 06:00 11/11/25 06:32 11/11/25 06:00 11/11/25 06:32 11/11/25 06:00 Narrative: Size equal to dates uterus non tender Occasional/ contractions non tender FHR is category 1 feta presentation is vertex Alert and oriented x 3 no shortness of breath Pain no chest pain no palpitations CVS regular rate and rhythm No CVAT Abdomen nontender, normal bowel sounds No guarding no rigidity No hernias OB Assessment & Plan Assessment and Plan (1) Gestational diabetes mellitus: Status: Acute (2) : Status: Acute (3) Previous section: Status: Acute (4) Advanced maternal age (AMA) in : Status: Acute (5) Elevated BP reading w/ no diagnosis of HTN: Status: Acute Additional Plan Additional Plan Comment: repeat LTCS today / refused Tubal / R/B and options explained. All questions answered Patient was given the reason for proceeding with surgery. She was given the risk benefits and options. She chose to proceed with the surgery. Risks of surgery to include risk of infection bleeding, possible injury to the surrounding organs like the urinary bladder, intestines, ureter, uterus, tubes, ovaries, nerves, blood vessels, possible risk of wound dehiscence later on or hernia development later on in future. However the surgery is done when the benefits outweigh the risks Possible risks of blood transfusion and options were also discussed. All questions answered Patient willing to proceed with surgery. (1) Gestational diabetes mellitus Qualifiers: Gestational diabetes mellitus control: diet-controlled Trimester: third trimester Qualified Code(s): O24.410 - Gestational diabetes mellitus in , diet controlled (2) Qualifiers: Weeks of gestation: 33 weeks Qualified Code(s): Z3A.33 - 33 weeks gestation of
--- NOTE | 2025-11-11 08:41 | ESOP_ITS ---
Operative Note - [employer] Procedure Date of procedure: 11/11/25 Procedure Performed: repeat LTCS at 38 weeks , AMA, GDM on metformin. elevated BP Indication: with previous c section at 38 weeks , AMA, GDM on metformin. elevated BP Pre-Op diagnosis: with previous c section at 38 weeks , AMA, GDM on metformin. elevated BP Post-Op diagnosis: with previous c section at 38 weeks , AMA, GDM on metformin. elevated BP Anesthesia type: Spinal Procedure description: After an informed consent patient was taken to the operating room, she was prepped and draped in the usual sterile fashion after receiving spinal anesthesia. A timeout was done. Surgical site infection prophylaxis was given Vickers was in place and draining clear urine SCDs were in place After verification of adequacy of anesthesia, a Pfannansteil incision was made 2 cm above the symphysis pubis and carried laterally on the skin and it was carried down to subcutaneous tissue and then to the rectus fascia, the rectus fascia was from underlying muscles by sharp and blunt dissection Peritoneal cavity was entered atraumatically A Villa retractor placed superiorly, and a bladder blade inferiorly Lower uterine segment was well-formed Incision made in the lower uterine segment, and amniotic sac ruptured, clear/ meconium stained amniotic fluid Baby was delivered as cephalic Cord clamped and cut and baby received by the waiting nursery team Cord blood collected, placenta removed spontaneously, uterus exteriorized and closed in a wet lap Uterine cavity clean dry of any remaining membranes with a dry lap, uterine incision closed with the help of 0 Monocryl in 2 layers in a running , interlocking fashion . Hemostasis is good Uterus is firm Both tubes and ovaries look normal Uterus is placed back in the peritoneal cavity in the pelvis Instrument needle and sponge count is correct, hemostasis was checked for again on the uterine incision and it is confirmed Peritoneal closure done with 2-0 Vicryl Rectus abdominis muscles approximated with 2-0 Vicryl Rectus fascia approximated with 0 Vicryl running sutures Subcutaneous tissue irrigated closed with and approximated with 3-0 plain catgut Skin approximated with 4-0 Monocryl. Tape dressing applied with Dermabond ABD dressing placed on top Vickers is draining clear urine EBL is 600 cc Patient delivered a liveborn male Apgars are 9 and 9 weight 3830 grams Specimen: none Estimated blood loss (ml): 600 Findings: see procedure Complications: none Surgical staff Operation Date: 11/11/25 07:[address] ROLLER OPERATOR: Trever Vega RN First Assistant: Aron Hodges Diagnosis Discharge Diagnosis (1) Elevated BP reading w/ no diagnosis of HTN: Status: Acute (2) Gestational diabetes mellitus: Status: Acute (3) : Status: Acute (4) Previous section: Status: Acute (5) Advanced maternal age (AMA) in : Status: Acute Problem List Completed Was Problem List Reviewed/Reconciled?: Yes (2) Gestational diabetes mellitus Qualifiers: Gestational diabetes mellitus control: diet-controlled Trimester: third trimester Qualified Code(s): O24.410 - Gestational diabetes mellitus in , diet controlled (3) Qualifiers: Weeks of gestation: 33 weeks Qualified Code(s): Z3A.33 - 33 weeks gestation of
[2025-11-11] MEDS: HYDROcodone/APAP 5/325 TABLET 1 TAB PO (14:51)
[2025-11-11] MEDS: OXYTOCIN in NS 20 units 20 UNIT/1,000 ML BAG 125 UNIT IV (16:14)
[2025-11-11] MEDS: KETOROLAC INJ 30 MG/ML VIAL IVP (19:12)
[2025-11-11] MEDS: LABETALOL 100 MG TABLET 200 MG PO (21:57)
[2025-11-11 22:32] LABS: Basophils # (Auto) 0.0 Thou/mm3 (0.0-0.2); Basophils % (Auto) 0 % (0-2.5); Eosinophils # (Auto) 0.0 Thou/mm3 (0.0-0.5); Eosinophils % (Auto) 0 % (0-10); Hematocrit 38.8 % (36.0-46.0); Hemoglobin 13.2 g/dL (12.0-16.0); Immature Granulocytes Auto 0.08 Thou/mm3 (0.00-0.00); Lymphocytes # (Auto) 1.4 Thou/mm3 (1.0-4.8); Lymphocytes % (Auto) 10 % (10-50); Mean Corpuscular HGB Conc 34.0 g/dl (31.0-37.0); Mean Corpuscular Hemoglobin 30.2 pg (25.0-35.0); Mean Corpuscular Volume 89 fL (80-100); Monocytes # (Auto) 0.8 Thou/mm3 (0.0-0.8); Monocytes % (Auto) 6 % (0-12); Neutrophils # (Auto) 11.0 Thou/mm3 (1.8-7.7); Neutrophils % (Auto) 83 % (37-80); Nucleated Red Blood Cell # 0.00 Thou/mm3 (0.00-0.00); Nucleated Red Blood Cell % 0 /100 WBC (0); Platelet Count 139 Thou/mm3 (140-440); RDW Standard Deviation 42.4 fL (36.4-46.3); Red Blood Count 4.37 Miln/mm3 (4.00-5.20); White Blood Count 13.3 Thou/mm3 (3.6-11.0)
[2025-11-11 22:49] LABS: Alanine Aminotransferase 15 U/L (10-49); Albumin, Serum 3.1 gm/dL (3.5-5.0); Albumin/Globulin Ratio 1.2 (1.2-2.2); Alkaline Phosphatase 112 U/L (46-116); Anion Gap 9 (7-16); Aspartate Amino Transferase 29 U/L (0-34); BUN/Creatinine Ratio 14 Ratio (12-20); Bilirubin,Total 0.3 mg/dL (0.3-1.2); Blood Urea Nitrogen 10 mg/dL (9-23); Calcium 8.6 mg/dL (8.3-10.6); Calcium (Corrected) 9.3 mg/dL (8.5-10.1); Carbon Dioxide 21.4 mMol/L (20.0-31.0); Chloride 106 mMol/L (98-107); Creatinine (Component) 0.7 mg/dL (0.6-1.3); Estimated Creatinine Clearance 98.6 mL/min (>60); Globulin 2.6 gm/dL (2.3-3.5); Glucose 97 mg/dL (74-106); Osmolality,Calculated 270 (275-295); Potassium 4.0 mMol/L (3.4-5.1); Sodium 136 mMol/L (136-145); Total Protein 5.7 gm/dL (5.7-8.2); Uric Acid 5.4 mg/dL (3.1-7.8); eGFR > 60 See Note
[2025-11-11 22:57] LABS: Fibrinogen 560 mg/dL (175-375); INR 0.9 (0.9-1.3); Partial Thromboplastin Time 27.8 Seconds (22.0-36.0); Prothrombin Time 9.8 Seconds (9.0-12.2)
[2025-11-12] VITALS (10 sets, daily range): BP systolic 114–133; BP diastolic 73–80; PULSE 66–88; RESP 16–19; TEMP 36.7–36.9; O2SAT 97–99
[2025-11-12] MEDS: KETOROLAC INJ 30 MG/ML VIAL IVP (04:07)
[2025-11-12] MEDS: LABETALOL 100 MG TABLET 200 MG PO ×3 (05:20→22:43)
[2025-11-12 06:06] LABS: Basophils # (Auto) 0.0 Thou/mm3 (0.0-0.2); Basophils % (Auto) 0 % (0-2.5); Eosinophils # (Auto) 0.0 Thou/mm3 (0.0-0.5); Eosinophils % (Auto) 0 % (0-10); Hematocrit 36.8 % (36.0-46.0); Hemoglobin 12.8 g/dL (12.0-16.0); Immature Granulocytes Auto 0.07 Thou/mm3 (0.00-0.00); Lymphocytes # (Auto) 1.3 Thou/mm3 (1.0-4.8); Lymphocytes % (Auto) 11 % (10-50); Mean Corpuscular HGB Conc 34.8 g/dl (31.0-37.0); Mean Corpuscular Hemoglobin 30.9 pg (25.0-35.0); Mean Corpuscular Volume 89 fL (80-100); Monocytes # (Auto) 0.7 Thou/mm3 (0.0-0.8); Monocytes % (Auto) 6 % (0-12); Neutrophils # (Auto) 9.5 Thou/mm3 (1.8-7.7); Neutrophils % (Auto) 81 % (37-80); Nucleated Red Blood Cell # 0.00 Thou/mm3 (0.00-0.00); Nucleated Red Blood Cell % 0 /100 WBC (0); Platelet Count 146 Thou/mm3 (140-440); RDW Standard Deviation 42.5 fL (36.4-46.3); Red Blood Count 4.14 Miln/mm3 (4.00-5.20); White Blood Count 11.6 Thou/mm3 (3.6-11.0)
[2025-11-12 06:49] LABS: Collection Type, Urine Clean Catch
[2025-11-12 07:17] LABS: Amorphous Crystals,Urine Present (Absent); Bacteria,Urine Rare; Bilirubin,Urine Negative (Negative); Blood,Urine 3+ (Negative); Clarity,Urine Turbid (Clear/Hazy); Color,Urine Lt-Brown (Lt Yel-Yel); Glucose, Urine Negative (Negative); Ketones,Urine Negative (Negative); Leukocyte Esterase,Urine Positive (Negative); Nitrite,Urine Negative (Negative); PH,Urine 5.5 (5.0-7.0); Protein,Urine 1+ (Neg - Trace); RBC,Urine 1726 /hpf (0-3); Specific Gravity,Urine 1.008 (1.001-1.035); Squamous Epithelial Cell,Urine 12 /hpf (0-5); Urobilinogen,Urine Negative mg/dL (0.0-1.0); WBC,Urine 24 /hpf (0-5)
[2025-11-12 07:23] LABS: Creatinine,Random Urine 37 mg/dL (30-125); Protein Total, Random Urine 54 mg/dL (1-14)
[2025-11-12] MEDS: DOCUSATE SOD 100 MG CAPSULE PO (08:23)
--- NOTE | 2025-11-12 11:04 | PD.LDPPPRG ---
Subjective Subjective Interval history: The patient is a 45-year-old -0-1-2 postop day #1 status post scheduled elective repeat section by Dr. Scott 11/11/2025 approximately 9:00 in the morning. Today the patient is resting comfortably in bed she is breast and bottlefeeding. Her only complaint is hand and foot swelling. No headaches. She is a gestational diabetic on metformin during . She denies heavy bleeding. She is ambulating voiding and tolerating a general diet. Exam Vital Signs Temp Pulse Resp BP Pulse Ox O2 Del Method 98.5 F 83 16 133/73 H 97 Room Air 11/12/25 08:15 11/12/25 08:15 11/12/25 08:15 11/12/25 08:15 11/12/25 08:15 11/12/25 08:15 Narrative Exam Fundus is firm nontender extremities show 2+ edema all the way to the knees and swollen hands no erythema Incision clean dry and intact with Dermabond type dressing in place. Objective Labs 11/12/25 04:36 11/11/25 22:12 Labs: Laboratory Results - last 24 hr 11/11/25 11/12/25 11/12/25 22:12 04:11 04:36 WBC 13.3 H 11.6 H RBC 4.37 Hgb 13.2 Hct 38.8 MCV 89 MCH 30.2 MCHC 34.0 RDW Std Deviation 42.4 Plt Count 139 L D Neut % (Auto) 83 H Lymph % (Auto) 10 [place] % (Auto) 6 Eos % (Auto) 0 Baso % (Auto) 0 Neut # (Auto) 11.0 H Lymph # (Auto) 1.4 [place] # (Auto) 0.8 Eos # (Auto) 0.0 Baso # (Auto) 0.0 Immature Gran # (Auto) 0.08 H Absolute Nucleated RBC 0.00 Immature Gran % 1 H Nucleated RBC % 0 PT 9.8 INR 0.9 APTT 27.8 Fibrinogen 560 H Sodium 136 Potassium 4.0 Chloride 106 Carbon Dioxide 21.4 Anion Gap 9 BUN 10 Creatinine 0.7 Estim Creat Clear Calc 98.6 eGFR > 60 BUN/Creatinine Ratio 14 Glucose 97 Calculated Osmolality 270 L Uric Acid 5.4 Calcium 8.6 Corrected Calcium 9.3 Total Bilirubin 0.3 AST 29 ALT 15 Alkaline Phosphatase 112 D Total Protein 5.7 Albumin 3.1 L D Globulin 2.6 Albumin/Globulin Ratio 1.2 Ur Collection Type Clean Catch Urine Color Lt-Brown A Urine Clarity Turbid A Urine pH 5.5 Ur Specific [place] 1.008 Urine Protein 1+ A Urine Glucose (UA) Negative Urine Ketones Negative Urine Blood 3+ A Urine Nitrite Negative Urine Bilirubin Negative Urine Urobilinogen (Auto) Negative Ur Leukocyte Esterase Positive Urine RBC 1726 H Urine WBC 24 H Ur Squamous Epith Cells 12 H Amorphous Crystals Present A Urine Bacteria Rare Ur Random Creatinine 37 U Random Total Protein 54 H 11/12/25 11/12/25 11/12/25 04:36 04:36 04:36 WBC Cancelled RBC 4.14 Cancelled Hgb 12.8 Cancelled Hct 36.8 MCV MCH MCHC RDW Std Deviation Plt Count Neut % (Auto) Lymph % (Auto) [place] % (Auto) Eos % (Auto) Baso % (Auto) Neut # (Auto) Lymph # (Auto) [place] # (Auto) Eos # (Auto) Baso # (Auto) Immature Gran # (Auto) Absolute Nucleated RBC Immature Gran % Nucleated RBC % PT INR APTT Fibrinogen Sodium Potassium Chloride Carbon Dioxide Anion Gap BUN Creatinine Estim Creat Clear Calc eGFR BUN/Creatinine Ratio Glucose Calculated Osmolality Uric Acid Calcium Corrected Calcium Total Bilirubin AST ALT Alkaline Phosphatase Total Protein Albumin Globulin Albumin/Globulin Ratio Ur Collection Type Urine Color Urine Clarity Urine pH Ur Specific [place] Urine Protein Urine Glucose (UA) Urine Ketones Urine Blood Urine Nitrite Urine Bilirubin Urine Urobilinogen (Auto) Ur Leukocyte Esterase Urine RBC Urine WBC Ur Squamous Epith Cells Amorphous Crystals Urine Bacteria Ur Random Creatinine U Random Total Protein 11/12/25 11/12/25 11/12/25 04:36 04:36 04:36 WBC RBC Hgb Hct Cancelled MCV 89 Cancelled MCH 30.9 Cancelled MCHC 34.8 RDW Std Deviation Plt Count Neut % (Auto) Lymph % (Auto) [place] % (Auto) Eos % (Auto) Baso % (Auto) Neut # (Auto) Lymph # (Auto) [place] # (Auto) Eos # (Auto) Baso # (Auto) Immature Gran # (Auto) Absolute Nucleated RBC Immature Gran % Nucleated RBC % PT INR APTT Fibrinogen Sodium Potassium Chloride Carbon Dioxide Anion Gap BUN Creatinine Estim Creat Clear Calc eGFR BUN/Creatinine Ratio Glucose Calculated Osmolality Uric Acid Calcium Corrected Calcium Total Bilirubin AST ALT Alkaline Phosphatase Total Protein Albumin Globulin Albumin/Globulin Ratio Ur Collection Type Urine Color Urine Clarity Urine pH Ur Specific [place] Urine Protein Urine Glucose (UA) Urine Ketones Urine Blood Urine Nitrite Urine Bilirubin Urine Urobilinogen (Auto) Ur Leukocyte Esterase Urine RBC Urine WBC Ur Squamous Epith Cells Amorphous Crystals Urine Bacteria Ur Random Creatinine U Random Total Protein 11/12/25 11/12/25 11/12/25 04:36 04:36 04:36 WBC RBC Hgb Hct MCV MCH MCHC Cancelled RDW Std Deviation 42.5 Cancelled Plt Count 146 Cancelled Neut % (Auto) 81 H Lymph % (Auto) [place] % (Auto) Eos % (Auto) Baso % (Auto) Neut # (Auto) Lymph # (Auto) [place] # (Auto) Eos # (Auto) Baso # (Auto) Immature Gran # (Auto) Absolute Nucleated RBC Immature Gran % Nucleated RBC % PT INR APTT Fibrinogen Sodium Potassium Chloride Carbon Dioxide Anion Gap BUN Creatinine Estim Creat Clear Calc eGFR BUN/Creatinine Ratio Glucose Calculated Osmolality Uric Acid Calcium Corrected Calcium Total Bilirubin AST ALT Alkaline Phosphatase Total Protein Albumin Globulin Albumin/Globulin Ratio Ur Collection Type Urine Color Urine Clarity Urine pH Ur Specific [place] Urine Protein Urine Glucose (UA) Urine Ketones Urine Blood Urine Nitrite Urine Bilirubin Urine Urobilinogen (Auto) Ur Leukocyte Esterase Urine RBC Urine WBC Ur Squamous Epith Cells Amorphous Crystals Urine Bacteria Ur Random Creatinine U Random Total Protein 11/12/25 11/12/25 11/12/25 04:36 04:36 04:36 WBC RBC Hgb Hct MCV MCH MCHC RDW Std Deviation Plt Count Neut % (Auto) Cancelled Lymph % (Auto) 11 Cancelled [place] % (Auto) 6 Cancelled Eos % (Auto) 0 Baso % (Auto) Neut # (Auto) Lymph # (Auto) [place] # (Auto) Eos # (Auto) Baso # (Auto) Immature Gran # (Auto) Absolute Nucleated RBC Immature Gran % Nucleated RBC % PT INR APTT Fibrinogen Sodium Potassium Chloride Carbon Dioxide Anion Gap BUN Creatinine Estim Creat Clear Calc eGFR BUN/Creatinine Ratio Glucose Calculated Osmolality Uric Acid Calcium Corrected Calcium Total Bilirubin AST ALT Alkaline Phosphatase Total Protein Albumin Globulin Albumin/Globulin Ratio Ur Collection Type Urine Color Urine Clarity Urine pH Ur Specific [place] Urine Protein Urine Glucose (UA) Urine Ketones Urine Blood Urine Nitrite Urine Bilirubin Urine Urobilinogen (Auto) Ur Leukocyte Esterase Urine RBC Urine WBC Ur Squamous Epith Cells Amorphous Crystals Urine Bacteria Ur Random Creatinine U Random Total Protein 11/12/25 11/12/25 11/12/25 04:36 04:36 04:36 WBC RBC Hgb Hct MCV MCH MCHC RDW Std Deviation Plt Count Neut % (Auto) Lymph % (Auto) [place] % (Auto) Eos % (Auto) Cancelled Baso % (Auto) 0 Cancelled Neut # (Auto) 9.5 H Cancelled Lymph # (Auto) 1.3 [place] # (Auto) Eos # (Auto) Baso # (Auto) Immature Gran # (Auto) Absolute Nucleated RBC Immature Gran % Nucleated RBC % PT INR APTT Fibrinogen Sodium Potassium Chloride Carbon Dioxide Anion Gap BUN Creatinine Estim Creat Clear Calc eGFR BUN/Creatinine Ratio Glucose Calculated Osmolality Uric Acid Calcium Corrected Calcium Total Bilirubin AST ALT Alkaline Phosphatase Total Protein Albumin Globulin Albumin/Globulin Ratio Ur Collection Type Urine Color Urine Clarity Urine pH Ur Specific [place] Urine Protein Urine Glucose (UA) Urine Ketones Urine Blood Urine Nitrite Urine Bilirubin Urine Urobilinogen (Auto) Ur Leukocyte Esterase Urine RBC Urine WBC Ur Squamous Epith Cells Amorphous Crystals Urine Bacteria Ur Random Creatinine U Random Total Protein 11/12/25 11/12/25 11/12/25 04:36 04:36 04:36 WBC RBC Hgb Hct MCV MCH MCHC RDW Std Deviation Plt Count Neut % (Auto) Lymph % (Auto) [place] % (Auto) Eos % (Auto) Baso % (Auto) Neut # (Auto) Lymph # (Auto) Cancelled [place] # (Auto) 0.7 Cancelled Eos # (Auto) 0.0 Cancelled Baso # (Auto) 0.0 Immature Gran # (Auto) Absolute Nucleated RBC Immature Gran % Nucleated RBC % PT INR APTT Fibrinogen Sodium Potassium Chloride Carbon Dioxide Anion Gap BUN Creatinine Estim Creat Clear Calc eGFR BUN/Creatinine Ratio Glucose Calculated Osmolality Uric Acid Calcium Corrected Calcium Total Bilirubin AST ALT Alkaline Phosphatase Total Protein Albumin Globulin Albumin/Globulin Ratio Ur Collection Type Urine Color Urine Clarity Urine pH Ur Specific [place] Urine Protein Urine Glucose (UA) Urine Ketones Urine Blood Urine Nitrite Urine Bilirubin Urine Urobilinogen (Auto) Ur Leukocyte Esterase Urine RBC Urine WBC Ur Squamous Epith Cells Amorphous Crystals Urine Bacteria Ur Random Creatinine U Random Total Protein 11/12/25 11/12/25 11/12/25 04:36 04:36 04:36 WBC RBC Hgb Hct MCV MCH MCHC RDW Std Deviation Plt Count Neut % (Auto) Lymph % (Auto) [place] % (Auto) Eos % (Auto) Baso % (Auto) Neut # (Auto) Lymph # (Auto) [place] # (Auto) Eos # (Auto) Baso # (Auto) Cancelled Immature Gran # (Auto) 0.07 H Cancelled Absolute Nucleated RBC 0.00 Cancelled Immature Gran % 1 H Nucleated RBC % PT INR APTT Fibrinogen Sodium Potassium Chloride Carbon Dioxide Anion Gap BUN Creatinine Estim Creat Clear Calc eGFR BUN/Creatinine Ratio Glucose Calculated Osmolality Uric Acid Calcium Corrected Calcium Total Bilirubin AST ALT Alkaline Phosphatase Total Protein Albumin Globulin Albumin/Globulin Ratio Ur Collection Type Urine Color Urine Clarity Urine pH Ur Specific [place] Urine Protein Urine Glucose (UA) Urine Ketones Urine Blood Urine Nitrite Urine Bilirubin Urine Urobilinogen (Auto) Ur Leukocyte Esterase Urine RBC Urine WBC Ur Squamous Epith Cells Amorphous Crystals Urine Bacteria Ur Random Creatinine U Random Total Protein 11/12/25 11/12/25 04:36 04:36 WBC RBC Hgb Hct MCV MCH MCHC RDW Std Deviation Plt Count Neut % (Auto) Lymph % (Auto) [place] % (Auto) Eos % (Auto) Baso % (Auto) Neut # (Auto) Lymph # (Auto) [place] # (Auto) Eos # (Auto) Baso # (Auto) Immature Gran # (Auto) Absolute Nucleated RBC Immature Gran % Cancelled Nucleated RBC % 0 Cancelled PT INR APTT Fibrinogen Sodium Potassium Chloride Carbon Dioxide Anion Gap BUN Creatinine Estim Creat Clear Calc eGFR BUN/Creatinine Ratio Glucose Calculated Osmolality Uric Acid Calcium Corrected Calcium Total Bilirubin AST ALT Alkaline Phosphatase Total Protein Albumin Globulin Albumin/Globulin Ratio Ur Collection Type Urine Color Urine Clarity Urine pH Ur Specific [place] Urine Protein Urine Glucose (UA) Urine Ketones Urine Blood Urine Nitrite Urine Bilirubin Urine Urobilinogen (Auto) Ur Leukocyte Esterase Urine RBC Urine WBC Ur Squamous Epith Cells Amorphous Crystals Urine Bacteria Ur Random Creatinine U Random Total Protein Assessment & Plan Problem List (1) Gestational diabetes mellitus: Problem details: Blood sugar stable on metformin Status: Acute (2) care following delivery: Problem details: Routine postop care. Lasix today and tomorrow for extreme swelling in extremities. Status: Acute (3) Elevated BP reading w/ no diagnosis of HTN: Problem details: Blood pressures are mildly elevated. Continue to monitor. Consider labetalol. Status: Acute Time Spent With Patient Time: Total time spent is greater than 50% in coordination of care (as documented) at patient's floor/unit and/or counseling patient: Time with patient: less than 15 minutes
[2025-11-12] MEDS: FUROSEMIDE INJ 10 MG/ML 4ML VIAL 40 MG IVP (13:12)
[2025-11-12] MEDS: HYDROcodone/APAP 5/325 TABLET 1 TAB PO (14:45)
[2025-11-13 03:56] VITALS: BP 132/85; PULSE 85; RESP 16; TEMP 36.9; O2SAT 97
[2025-11-13] MEDS: ACETAMINOPHEN 325 MG TABLET 650 MG PO (04:09)
[2025-11-13 06:30] VITALS: BP 108/62; PULSE 76
[2025-11-13 08:00] VITALS: BP 124/75; PULSE 74; RESP 16; TEMP 36.8; O2SAT 98
[2025-11-13] MEDS: DOCUSATE SOD 100 MG CAPSULE PO (08:30)
--- NOTE | 2025-11-13 10:41 | PD.LDPPPRG ---
Subjective Subjective Interval history: Delivery type: Patient doing well this morning. No acute complaints. Ambulating, tolerating p.o., and voiding without difficulty. HTN/Pre-E screen negative: No CP, SOB, MO, visual changes, RUQ pain. : Yes Lochia: diminishing Bowel: Flatus + / BM + UOP: Voiding freely Exam Vital Signs Temp Pulse Resp BP Pulse Ox O2 Del Method 98.2 F 74 16 124/75 98 Room Air 11/13/25 08:00 11/13/25 08:00 11/13/25 08:00 11/13/25 08:00 11/13/25 08:00 11/13/25 08:00 Constitutional Constitutional: no acute distress Routine HEENT Exam Head: Present normocephalic and atraumatic Eye: Present EOMI and PERRL ENT: Present mucous membranes moist Routine Neck Exam Neck: Present supple and trachea midline Routine Respiratory Exam Respiratory: Present chest non-tender, lungs clear, normal breath sounds and no resp distress Routine Cardiovascular Exam Cardiovascular: Present RRR Routine Abdominal Exam Abdominal: Present soft and normoactive bowel sounds Routine Extremities Exam Extremities: Present full ROM Routine Skin Exam Skin: Present intact, dry and warm Routine Neurological Exam Neurological: Present alert, oriented X3 and CN II-XII intact Routine Psychiatric Exam Psychiatric: Present normal affect and normal thought process Objective Labs 11/12/25 04:36 11/11/25 22:12 Assessment & Plan Problem List (1) Gestational diabetes mellitus: Status: Acute (2) care following delivery: Status: Acute Assessment and plan: PPD/POD#2 1. Continue routine care 2. Transition to PO meds. 3. Encourage to ambulate/ breast-feed 4. Anticipate discharge home today. (3) Elevated BP reading w/ no diagnosis of HTN: Status: Acute Time Spent With Patient Time: Total time spent is greater than 50% in coordination of care (as documented) at patient's floor/unit and/or counseling patient:
--- NOTE | 2025-11-13 10:42 | ESDS_ITS ---
DS: Providers Provider Date of admission: 11/11/25 05:41 Primary care physician: Physician No Primary/Family Admitting Provider: Geovanna Scott MD Attending Provider on Admission: Kayode Rangel MD Consults: 11/11/25 08:46 Referral Routine Comment: Attending Provider on DC: Kayode Rangel MD Discharging Provider: Kayode Rangel MD DS: Diagnosis Discharge Diagnosis (1) care following delivery: Status: Acute (2) Gestational diabetes mellitus: Status: Acute (3) Elevated BP reading w/ no diagnosis of HTN: Status: Acute Problem List Completed Was Problem List Reviewed/Reconciled?: Yes Summary/Hosp Course Brief History: 45 years old at 38 weeks and AMA, GDM on Metformin and here for repeat LTCS R/B and options explained Peripartum Data Delivery Method: Low Transverse Episiotomy Description: None Procedures: Procedures Operation Date: 11/11/25 07:45 Actual Procedure Side Surgeon p in OB Bilateral Geovanna Scott MD Time Spent with Patient Time attestation: Total time spent providing and/or coordinating discharge services: Exam Vital Signs Temp Pulse Resp BP Pulse Ox O2 Del Method 98.2 F 74 16 124/75 98 Room Air 11/13/25 08:00 11/13/25 08:00 11/13/25 08:00 11/13/25 08:00 11/13/25 08:00 11/13/25 08:00 Discharge Plan Plan Patient Disposition: HOME (Self Care) Patient condition on transfer: Stable Prescriptions/Referrals Prescriptions/Med Rec: New hydrocodone-acetaminophen 5-325 mg tablet 1 tab PO Q6H MDD 4 PRN (Reason: pain) 5 Days Qty: 20 0RF docusate sodium [Stool Softener] 100 mg capsule 100 mg PO QDAY 30 Days Qty: 30 0RF ibuprofen 600 mg tablet 600 mg PO Q6H MDD 4 PRN (Reason: fever or pain) 10 Days Qty: 40 0RF Continued metformin 500 mg tablet 500 mg PO BID Qty: 60 0RF aspirin 81 mg tablet,delayed release (DR/EC) 81 mg PO QDAY Patient Comments: TOME 1 TABLETA POR V A ORAL TODOS LOS D PNV no.95-ferrous fumarate-FA [] 28 mg iron- 800 mcg tablet 1 tab PO QDAY Patient Comments: TOME 1 TABLETA POR V A ORAL TODOS LOS D Referrals: Kayode Rangel MD [Physician, BUSINESS INITIATIVES MANAGER] No Primary/Family,Physician [Primary Care Provider] Patient/Caregiver Discharge Instructions Discharge Activity: activity as tolerated Education Materials: After Delivery [place] Concerns, Breast Care After , After a , Section (), C Section Dc, Feel Healthy After Print Language: Amharic Stand Alone Forms: [place] Award Info., Patient Portal Info Letter, DC from Surgery Discharge Order Discharge Orders: Discharge (Routine); Ordered 11/13/25 Ordered By: Kayode Rangel Planned Discharge Date 11/13/25 (2) Gestational diabetes mellitus Qualifiers: Gestational diabetes mellitus control: diet-controlled Trimester: third trim taty Qualified Code(s): O24.410 - Gestational diabetes mellitus in , diet controlled
--- NOTE | 2025-11-17 22:12 | OBDSUM_ITS ---
Data (Malhotra) Data Hx Section: Yes (X1) Maternal Blood Type: A Pos : 3 Term: 1 : 0 Livin Abortions: Spontaneous & Theraputic: 1 Delivery Data (Malhotra) Labor Data Induction/Augmentation Agent: None ROM date: 11/11/25 ROM time: Amniotic membrane rupture type: Artificial Amniotic fluid description: Clear Delivery Data delivery date: 11/11/25 [place] delivery time: Placenta delivery date: 11/11/25 Placenta delivery time: Delivered by: Tyler Delivery nurse: Ioana Vale nurse: Marsha Montes Shrimp Peeling Machine Tender at delivery: No Delivery Method Delivery method: Low Transverse Presentation: Vertex Anesthesia Type Anesthesia Type: Spinal Anesthesia type: Spinal Placenta Placenta delivery description: Spontaneous Cord blood sent to lab: Yes cord blood collection: Cord Blood Type Episiotomy Episiotomy description: None Umbilical Cord cord description: 3 Vessels Data (Malhotra) Data 's gender: Male Identification band number: [id number] weight (gms): 3830 g Weight (pounds): 8 lbs and 7.1 ozs 1 minute: 9 5 minutes: 9
== END 2025-11-13 14:27 | disposition home or self-care (01) | DRG 540 ==
LOC: S4SX 07:02 → S4NX 08:16
PROVIDERS: Admitting Provider Obstetrics & Gynecology; Visit Provider Obstetrics & Gynecology
PROC: 10D00Z1 Extraction of Products of Conception, Low, Open Approach (ICD-10-PCS; CPT 59514; principal; 2025-11-11 07:30)
DX: O34.211 Maternal care for low transverse scar from previous cesarean delivery (principal); O24.425 Gestational diabetes mellitus in childbirth, controlled by oral hypoglycemic drugs; Z37.0 Single live birth; Z3A.38 38 weeks gestation of pregnancy; O77.0 Labor and delivery complicated by meconium in amniotic fluid; O26.899 Other specified pregnancy related conditions, unspecified trimester; R03.0 Elevated blood-pressure reading, without diagnosis of hypertension; Z79.84 Long term (current) use of oral hypoglycemic drugs
CPT/HCPCS: 36415; 59409; 80053; 81001; 82570; 84156; 84550; 85025; 85384; 85610; 85730; 94762; A4217; A4314; A4649; J0689; J1885; J1938; J2274; J2371; J2590; J2765; J3010; J3490; A9270; J2270